=== PATIENT | female | born 1990 | race Caucasian/White ===

== ENCOUNTER → 2016-09-13 | Outpatient (CLI) | payer BC ==
[2016-09-13 12:31] LABS: CHLORIDE,CL 104 mmol/L (98-110); SODIUM,NA 137 mmol/L (136-146)
== END ==
LOC: MW.CHOBGYN 11:24
PROVIDERS: ATTEND Advanced Practice Midwife
DX: Z31.89 Encounter for other procreative management (principal); E28.9 Ovarian dysfunction, unspecified
CPT/HCPCS: 36415; 80053; 82627; 82670; 83001; 83002; 83498; 84144; 84146; 84402; 84439; 84443; 86592